=== PATIENT | male | born 1950 | race Caucasian/White ===

== ENCOUNTER 2018-03-31 07:03 | Inpatient (IN) | payer OTHER ==
[2018-03-27 09:17] LABS: ABSOLUTE EOSINOPHILS 0.1 thou/uL (0.0-0.7); ABSOLUTE LYMPHOCYTES 1.1 thou/uL (0.8-5.3); ABSOLUTE MONOCYTES 0.5 thou/uL (0.0-1.2); ABSOLUTE NEUTROPHILS 3.7 thou/uL (1.6-8.1); BASOPHILS 0.7 %; HEMATOCRIT 48.3 % (42.0-52.0); HEMOGLOBIN 16.3 gm/dL (14.0-18.0); LYMPHOCYTES 20.9 %; MCHC 33.9 g/dL (28.0-37.0); MCV 94.5 fL (80.0-100.0); MONOCYTES 9.8 %; MPV 7.5 fl. (7.2-11.1); NUCLEATED RBCS 0 /100WBC; PLATELET COUNT* 219 thou/uL (150-400); POLYS 67.6 %; RBC 5.11 mil/uL (4.50-6.00); RDW-CV 13.5 % (10.5-14.5); WBC 5.4 thou/uL (4.0-11.0)
[2018-03-27 09:31] LABS: ALBUMIN 3.8 g/dL (3.4-5.0); APTT 27.6 Seconds (25.0-31.3); CALCIUM 8.7 mg/dL (8.5-10.1); CREATININE 1.3 mg/dL (0.6-1.3); POTASSIUM 3.9 mmol/L (3.5-5.1); PROTIME 10.5 Seconds (9.20-11.50); TOTAL BILIRUBIN 0.8 mg/dL (<0.1-1.0); TOTAL PROTEIN 7.4 g/dL (6.4-8.2)
[2018-03-27 10:21] LABS: ESR (SEDRATE) 5 mm/hr (0-20)
--- NOTE | 2018-03-27 16:47 | EKG ---
[place] [address] ELECTROCARDIOGRAM REPORT Name: SONY AHN Room: [facility].#: [id number] Admission: Attend Phys: Jerome Contreras DO Discharge: Date of : 50 Report #: [id number] THIS REPORT FOR: //name// [facility] Test Date: 2018-03-27 Test Time: 09:44:12 Pat Name: SONY AHN Department: Room: Gender: M Verification Manager: : 1950 Requested By: Jerome Contreras Order Number: [id number] Reading MD: Mike Falcon Measurements Intervals [place] Rate: 63 P: 35 MD: 175 QRS: 21 QRSD: 108 T: 109 QT: 416 QTc: 426 Interpretive Statements Sinus rhythm Inferior infarct, old possible Compared to ECG 10/25/2014 09:56:43 Myocardial infarct finding now present ST (T wave) deviation no longer present Electronically Signed On 03-27-2018 16:47:19 CDT by Mike Falcon [email or web address] <ELECTRONICALLY SIGNED> By: Mike Falcon MD, [facility] 03/27/18 1647 0944 Mike Falcon MD, [facility] /EPI
[~2018-03-31] VITALS: Ht 182.9 cm; Wt 102.1 kg
[~2018-03-31 07:03] MED LIST: AMARYL2 MG PO; ASPIR 8181 MG PO; ASPIRIN325 PO; COLACE100 MG PO; COZAAR 25 MG TA25 M2 PO; FENOFIBRATE160 MG PO; INVOKANA300 MG PO; LIPITOR80 MG PO; LOPRESSOR50 PO; METAMUCIL PAC1 UDPKT PO; METFORMIN HCL500 MG PO; MILK OF MA2400 MG/10 PO; MOBIC15 MG PO; NORCO 5-325 TA1 EACH PO; NORVASC5 MG PO; OXYCODONE HCL 55 MG PO; PIOGLITAZONE15 MG; TOPROL XL100 MG PO; TRULICITY0.75 MG/0. SUBQ; XARELTO10 MG PO; ZESTORETIC 20-1 EACH PO; ZOCOR20 MG PO
[2018-03-31 07:54] VITALS: BP 154/93
[2018-03-31 18:15] VITALS: BP 157/93
[2018-04-01] VITALS: BP 138/78
[2018-04-01 04:00] VITALS: BP 159/82
[2018-04-01 04:32] LABS: HEMATOCRIT 42.5 % (42.0-52.0); HEMOGLOBIN 14.5 gm/dL (14.0-18.0)
[2018-04-01 07:30] VITALS: BP 153/89
[2018-04-01 08:15] VITALS: BP 157/87
[2018-04-01 12:54] VITALS: BP 155/92
[2018-04-01 16:09] VITALS: BP 133/73
[2018-04-02 01:13] VITALS: BP 153/89
[2018-04-02 04:02] LABS: HEMATOCRIT 41.1 % (42.0-52.0); MCH 32.1 pg (26.0-34.0); MCHC 34.1 g/dL (28.0-37.0); MCV 94.1 fL (80.0-100.0); MPV 7.3 fl. (7.2-11.1); RBC 4.36 mil/uL (4.50-6.00); RDW-CV 13.8 % (10.5-14.5); WBC 9.1 thou/uL (4.0-11.0)
[2018-04-02 04:18] LABS: CALCIUM 8.4 mg/dL (8.5-10.1)
[2018-04-02 10:10] VITALS: BP 167/89
[2018-04-02] MEDS ORDERED: OXYCODONE HCL 55 MG PO (10:21)
[2018-04-02] MEDS ORDERED: NORCO 5-325 TA1 EACH PO (10:22)
[2018-04-02] MEDS ORDERED: ELIQUIS2.5 MG PO (10:23)
[2018-04-02] MEDS ORDERED: AMARYL2 MG PO (10:33)
[2018-04-02 13:18] VITALS: BP 167/89
--- NOTE | 2018-04-04 07:21 | OP ---
[address] [address] OPERATIVE REPORT Name: SONY AHN Room: [address]#: [id number] Admission: 03/31/18 Attend Phys: Carlos Valenzuela Discharge: 04/02/18 Date of : 50 Report #: [id number] THIS REPORT FOR: //name// CC: Jerome Rock DATE OF SERVICE: 03/31/2018 PREOPERATIVE DIAGNOSIS: Advanced degenerative joint disease, right knee. POSTOPERATIVE DIAGNOSIS: Advanced degenerative joint disease, right knee. PROCEDURE: Right total knee arthroplasty. SURGEON: Jerome Contreras DO. INSPECTOR PENETRANT: Andres Jeff DO. ESTIMATED BLOOD LOSS: 100 mL. TOURNIQUET TIME: Approximately 80 minutes. ANTIBIOTICS: Ancef 2 grams IV preoperatively. ANESTHESIA: General. COMPLICATIONS: None. DRAINS: None. SPECIMEN REMOVED: None. ORTHOPEDIC IMPLANTS: Biomet Vanguard total knee system. 1. Size 79 tibial baseplate. 2. A 67.5 cruciate retaining femoral component. 3. A 31 mm 3 peg patella. 4. A 10 mm anterior stabilized polyethylene bearing. 5. Two bags of Palacos bone cement with 2 grams of vancomycin powder added. CONDITION: The patient is stable to PACU. INDICATIONS FOR PROCEDURE: The patient is a very pleasant 67-year-old male seen in my clinic regarding right knee pain. He has had it for quite some time. He had a previous left total knee arthroplasty with myself, has done quite well with this. The right knee was beginning to interfere with his activities of [facility] [address] [place] [address] OPERATIVE REPORT Name: SONY AHN Room: [address] IN [facility]#: [id number] Admission: 03/31/18 Attend Phys: Carlos Valenzuela Discharge: 04/02/18 Date of : 50 Report #: [id number] daily living and his quality of life. X-rays were consistent with end-stage degenerative joint disease. Due to failed conservative treatment, I discussed potential benefit of right total knee arthroplasty. I discussed procedure, risks, benefits, complications, indications in detail with him. Risks discussed include but not limited to infection, neurovascular injury, continued or worsening pain, hardware failure, fracture, arthrofibrosis, need for further surgery, DVT, PE and anesthesia complications. He did express understanding and wished to proceed with surgery. DESCRIPTION OF PROCEDURE: After consent was obtained, the patient was taken to the operative suite and placed in the supine position on the operating room table, was given benefit of general anesthesia. A well-padded tourniquet was placed on the right upper thigh. Right leg was sterilely prepped and draped in usual fashion. Preop timeout was obtained to confirm the correct patient, procedure and operative site. Surgery began with elevation of the leg. Tourniquet was inflated to 300 mmHg. A standard anterior knee midline incision was made. Sharp dissection was taken down to the level of the capsule. A new knife was used and a medial parapatellar arthrotomy was performed. He had a normal appearing joint effusion. The patella was everted. He had severely eburnated bone throughout all 3 compartments with osteophytes throughout. Hohmann retractors were placed at all times to protect the collateral ligaments. Femoral drill was used to open the femoral canal followed by T-handle and intramedullary lulú, a 5-degree valgus cut was measured. Distal femoral cut was made through the captured block. Attention was then turned to the tibia. External tibial guide was then utilized, measuring 10 mm cut off the high lateral side. A proximal tibial cut was made back. Knee was taken through extension, 10 block was used to ensure adequate resection. At this time, the AP sizer was placed on distal femur, this measured 67.5. Two dispatcher ship pilot holes were drilled in 3 degrees external rotation. The size 67.5, 4-in-1 cutting block was then pinned in place. Anterior and posterior condylar cuts as well as chamfer cuts were then made. The proximal tibia was then exposed, this measured size 79. The tibial trial was pinned in place utilizing drop lulú basing rotation off medial third of the tibial tubercle and middle of talus. The trial femur was placed. Size 10 spacer was placed. Knee was taken through range of motion. Knee had full flexion/extension with stable varus and valgus testing with equal flexion and extension gaps. The patella was everted. Posterior patellar cut was made using freehand technique, this measured size 31, three peg holes were drilled, size 31 button was placed. Knee was taken through range of motion, the patella did track well. At this time, the femoral drill and spacer removed. Proximal tibia was opened with a drill and punch. All trial components were removed. The knee was thoroughly irrigated with pulsatile lavage and dried with clean lap sponge. The cement was mixed, placed on the final components, which were then impacted into place. Excess cement was removed. A size 10 spacer was placed. Knee was [address] [address] OPERATIVE REPORT Name: SONY AHN Room: [address]#: [id number] Admission: 03/31/18 Attend Phys: Carlos Valenzuela Discharge: 04/02/18 Date of : 50 Report #: [id number] taken through extension. Axial compression was applied until the cement hardened. Once cement hardened, trial reduction was performed and final size 10 anterior stabilized bearing was chosen. This was placed on a clean tibial tray and locked in place with locking bar. The knee was taken through final range of motion. He had full flexion and extension with stable varus and valgus testing and equal flexion and extension gaps with good patellar tracking. The tourniquet was then allowed to deflate at approximately 80 minutes. Hemostasis was achieved with electrocautery and direct pressure. Ortho cocktail was injected. The knee was again thoroughly irrigated. The capsular tissue was closed with #1 Vicryl in [id number] fashion. PRP was injected into the capsule. Knee was again thoroughly irrigated. Subcutaneous tissue closed with 2-0 Vicryl in inverted interrupted fashion followed by running Monocryl stitch on the skin. This was covered with Dermabond, which was allowed to dry, silver dressing, 4 x 4s, ABD pad, soft roll and Ge bandage. He did tolerate the procedure well without complications. He was taken to recovery room in stable condition. All needle and sponge counts were correct x 2 at the end of the procedure. <ELECTRONICALLY SIGNED> By: Rosas De La Paz DO 04/04/18 0721 1655 [id number] Contreras DO /sandip
== END 2018-04-02 13:10 | disposition home health service (06) | DRG 470 ==
LOC: M.SUR 07:03 → M.ORTHSURG 11:11 → M.TBA 11:11 → M.SUR 13:52 → M.ORTHSURG 17:06
PROVIDERS: Internal Medicine; Orthopaedic Surgery; ADMIT Internal Medicine
PROC: 0SRC0J9 Replacement of Right Knee Joint with Synthetic Substitute, Cemented, Open Approach (ICD-10-PCS; principal; 2018-03-31)
DX: M17.11 Unilateral primary osteoarthritis, right knee (principal); I10 Essential (primary) hypertension; Z96.652 Presence of left artificial knee joint; I25.10 Atherosclerotic heart disease of native coronary artery without angina pectoris; E83.119 Hemochromatosis, unspecified; Z60.2 Problems related to living alone; E11.65 Type 2 diabetes mellitus with hyperglycemia; Z79.899 Other long term (current) drug therapy; Z79.82 Long term (current) use of aspirin; Z90.49 Acquired absence of other specified parts of digestive tract; Z95.1 Presence of aortocoronary bypass graft